=== PATIENT | male | born 1985 | race Two or more races ===

== ENCOUNTER → 2017-04-03 | Outpatient (REF) | payer MEDICARE, OTHER ==
[2017-04-03 16:57] LABS: MEAN CORPUSCULAR HEMOGLOBIN 29.7 pg (27.0-33.0); MEAN CORPUSCULAR HGB CONC 33.4 g/dl (32.0-36.5); RED CELL DISTRIBUTION WIDTH 13.1 % (11.5-14.5); WHITE BLOOD COUNT 7.6 K/mm3 (4.0-10.0)
[2017-04-03 18:02] LABS: ALBUMIN 4.3 GM/DL (3.2-5.2); ALBUMIN/GLOBULIN RATIO 1.26 (1.00-1.93); ALKALINE PHOSPHATASE 77 U/L (45-117); ALT/SGPT 30 U/L (12-78); ANION GAP 6 MEQ/L (8-16); AST/SGOT 14 U/L (15-37); BILIRUBIN,TOTAL 0.4 MG/DL (0.2-1.0); BLOOD UREA NITROGEN 16 MG/DL (7-18); CALCIUM LEVEL 9.5 MG/DL (8.5-10.1); CARBON DIOXIDE LEVEL 30 MEQ/L (21-32); CHLORIDE LEVEL 105 MEQ/L (98-107); CHOLESTEROL LEVEL 187 MG/DL (<200); CREATININE FOR GFR 1.08 MG/DL (0.70-1.30); GLOMERULAR FILTRATION RATE > 60.0 (>60); GLUCOSE, FASTING 78 MG/DL (70-105); POTASSIUM SERUM 4.3 MEQ/L (3.5-5.1); SODIUM LEVEL 141 MEQ/L (136-145); TOTAL PROTEIN 7.7 GM/DL (6.4-8.2); TRIGLYCERIDES LEVEL 118 MG/DL (<150)
== END ==
LOC: M SFHCLERA 14:25
PROVIDERS: ATTEND Family Medicine
DX: Z00.00 Encounter for general adult medical examination without abnormal findings (principal); F17.200 Nicotine dependence, unspecified, uncomplicated; Z91.89 Other specified personal risk factors, not elsewhere classified; Z13.220 Encounter for screening for lipoid disorders; Z72.3 Lack of physical exercise

== ENCOUNTER → 2018-01-14 | Outpatient (CLI) | payer OTHER | LOC: M WUC 09:45 | DX: S63.610A Unspecified sprain of right index finger, initial encounter (principal); W18.30XA Fall on same level, unspecified, initial encounter; Y92.009 Unspecified place in unspecified non-institutional (private) residence as the place of occurrence of the external cause ==

== ENCOUNTER 2019-05-28 12:04 | Inpatient (IN) | payer OTHER ==
[~2019-05-28] VITALS: Ht 172.7 cm; Wt 71.7 kg
[2019-05-28] MEDS ORDERED: KETOROLAC 30 MG/ML VIAL (J1885) IV ONE (14:15)
[2019-05-28] MEDS ORDERED: ONDANSETRON 4MG/2ML VIAL (J2405) IV ONE (14:15)
[2019-05-28] MEDS ORDERED: NS 1,000 ML IV ONE (14:15)
[2019-05-28 14:45] LABS: BASO % 0.3 % (0.0-1.0); EOS % 0.2 % (0.0-3.0); HEMATOCRIT 48.5 % (42.0-52.0); HEMOGLOBIN 15.8 g/dl (13.5-17.5); LYMPH # 2.2 10^3/uL (1.5-4.5); LYMPH % 18.6 % (24.0-44.0); MEAN CORPUSCULAR HEMOGLOBIN 29.1 pg (27.0-33.0); MEAN CORPUSCULAR HGB CONC 32.6 g/dl (32.0-36.5); MEAN CORPUSCULAR VOLUME 89.3 fl (80.0-96.0); MONO # 0.7 10^3/uL (0.0-0.8); MONO % 6.3 % (0.0-5.0); NEUTROPHILS # 8.6 10^3/uL (1.8-7.7); NEUTROPHILS % 74.3 % (36.0-66.0); PLATELET COUNT, AUTOMATED 300 10^3/uL (150-450); RED BLOOD COUNT 5.43 10^6/uL (4.30-6.10); WHITE BLOOD COUNT 11.6 10^3/uL (4.0-10.0)
[2019-05-28] MEDS: GASTROGRAFIN SOLUTION 30ML PO SCH ×2 (14:45→15:26)
[2019-05-28 15:15] LABS: ALBUMIN 4.6 GM/DL (3.2-5.2); ALT/SGPT 42 U/L (12-78); AMYLASE 100 U/L (25-115); BILIRUBIN,TOTAL 0.6 MG/DL (0.2-1.0); BLOOD UREA NITROGEN 15 MG/DL (7-18); CALCIUM LEVEL 9.6 MG/DL (8.5-10.1); CARBON DIOXIDE LEVEL 33 MEQ/L (21-32); CHLORIDE LEVEL 104 MEQ/L (98-107); CREATININE FOR GFR 1.13 MG/DL (0.70-1.30); GLOMERULAR FILTRATION RATE > 60.0 (>60); GLUCOSE, FASTING 91 MG/DL (70-100); POTASSIUM SERUM 3.6 MEQ/L (3.5-5.1); SODIUM LEVEL 141 MEQ/L (136-145)
[2019-05-28] MEDS ORDERED: ISOVUE-370 76% 100ML VIAL (Q9967) As Ordered ONE (16:14)
[2019-05-28] MEDS ORDERED: METOCLOPRAMIDE INJ 10MG/2ML VIAL (J2765) IV ONE (16:45)
--- NOTE | 2019-05-28 17:44 | REP ---
CT ABDOMEN AND PELVIS WITH ORAL AND IV CONTRAST: TECHNIQUE: Axial contrast enhanced images from the lung bases to the pubic symphysis using 100 mL Isovue 370 intravenous contrast material with multiplanar reformations. The visualized lung bases are clear. The liver demonstrates a peripherally enhancing nodule characteristic of hemangioma in the posterior segment of the right lobe best seen on image 28. Approximately 1.1 cm in diameter. Gallbladder is grossly unremarkable. Spleen, adrenals, pancreas and kidneys are unremarkable. There is no hydronephrosis bilaterally. There is no abdominal aortic aneurysm. There is no adenopathy. There is no free air or free fluid. No bowel wall thickening is seen. The appendix is normal. No pelvic mass is seen. Urinary bladder is unremarkable. IMPRESSION: No acute abnormalities are detected. No evidence of appendicitis or bowel inflammation. No free or free fluid. There is a nodule in the posterior segment of the right lobe of the liver demonstrating characteristics most consistent with hemangioma, approximately 1.1 cm in maximum diameter. Electronically Signed by Khurram Hart MD 05/28/2019 06:51 P
[2019-05-28] MEDS ORDERED: ONDANSETRON 4MG/2ML VIAL (J2405) IV PRN (18:00)
[2019-05-28] MEDS ORDERED: KETOROLAC 30 MG/ML VIAL (J1885) IV PRN (18:00)
--- NOTE | 2019-05-28 18:12 | HPEPDOC ---
[facility] Medical History & Physical Date of Admission May 28, 2019 Date of Service: May 28, 2019 History and Physical CHIEF COMPLAINT: nausea vomiting diarrhea HISTORY OF PRESENT ILLNESS: Pt is 34 y/o M with no PMHx does not have PCP, not on any medications presented to ED with worsening nausea and vomiting. Upon my encounter pt is awake and alert not in any acute distress. He states he has chronic diarrhea for one year now, lost 25 pounds. 5-6 BM per day semi loose stools without blood . Denies any fever or chills. Denies any abdominal pain. He reports mild lower abdomen pain associated with urge for BM. He went urgent care where he was referred for GI series that was not completed yet. ED Course: Lipase 1100, ABD CT unremarkable, labs mild leukocytosis. 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 REVIEW OF SYSTEMS: 10 point negative except in HPI HOME MEDICATIONS: Please see below. PHYSICAL EXAMINATION: VITAL SIGNS: please see below GENERAL APPEARANCE: awake alert oriented x3, no acute distress HEENT: neck supple ULISES EOMI no icterus mucosa moist CARDIOVASCULAR: S1 S2 RRR LUNGS: clear bilat no wheezing no rales ABDOMEN: soft NT ND MUSCULOSKELETAL: no deformity EXTREMITIES: no tenderness no cyanosis NEUROLOGICAL: grossly intact PSYCHIATRIC: mood affect appropriate LABORATORY DATA: See below. IMAGING: CT ABDOMEN AND PELVIS WITH ORAL AND IV CONTRAST: TECHNIQUE: Axial contrast enhanced images from the lung bases to the pubic symphysis using 100 mL Isovue 370 intravenous contrast material with multiplanar reformations. The visualized lung bases are clear. The liver demonstrates a peripherally enhancing nodule characteristic of hemangioma in the posterior segment of the right lobe best seen on image 28. Approximately 1.1 cm in diameter. Gallbladder is grossly unremarkable. Spleen, adrenals, pancreas and kidneys are unremarkable. There is no hydronephrosis bilaterally. There is no abdominal aortic aneurysm. There is no adenopathy. There is no free air or free fluid. No bowel wall thickening is seen. The appendix is normal. No pelvic mass is seen. Urinary bladder is unremarkable. IMPRESSION: No acute abnormalities are detected. No evidence of appendicitis or bowel inflammation. No free or free fluid. There is a nodule in the posterior segment of the right lobe of the liver demonstrating characteristics most consistent with hemangioma approximately 1.1 cm in maximum diameter. MICROBIOLOGY: Please see below. Vital Signs Date Time Temp Pulse Resp B/P (MAP) Pulse Ox O2 Delivery O2 Flow Rate FiO2 05/28/19 17:19 97.0 79 18 140/79 (99) 97 Room Air 05/28/19 13:03 05/28/19 12:05 97.7 99 18 130/77 (94) 98 Room Air Laboratory Tests 05/28/19 14:01: Blood Urea Nitrogen 15, Creatinine 1.13, Sodium Level 141, Potassium Level 3.6, Chloride Level 104, Carbon Dioxide Level 33H, Calcium Level 9.6, Aspartate Amino Transf (AST/SGOT) 28, Alanine Aminotransferase (ALT/SGPT) 42, Alkaline Phosphatase 78, Total Bilirubin 0.6, Total Protein 8.0, Albumin 4.6, Anion Gap 4L, Glomerular Filtration Rate > 60.0, Fasting Glucose 91, Albumin/Globulin Ratio 1.35, Amylase Level 100, Lipase 1109H 05/28/19 14:18: White Blood Count 11.6H, Red Blood Count 5.43, Hemoglobin 15.8, Hematocrit 48.5, Mean Corpuscular Volume 89.3, Mean Corpuscular Hemoglobin 29.1, Mean Corpuscular Hemoglobin Concent 32.6, Red Cell Distribution Width 13.3, Platelet Count 300, Neutrophils (%) (Auto) 74.3H, Lymphocytes (%) (Auto) 18.6L, Monocytes (%) (Auto) 6.3H, Eosinophils (%) (Auto) 0.2, Basophils (%) (Auto) 0.3, Neutrophils # (Auto) 8.6H, Lymphocytes # (Auto) 2.2, Monocytes # (Auto) 0.7, Eosinophils # (Auto) 0.0, Basophils # (Auto) 0.0, Immature Granulocyte % (Auto) 0.3, Nucleated Red Blood Cells % (auto) 0.0, Urine Color YELLOW, Urine Appearance HAZY, Urine pH 6.0, Urine Specific [place] 1.032, Urine Protein 1+H, Urine Glucose (UA) NEGATIVE, Urine Ketones TRACEH, Urine Blood NEGATIVE, Urine Nitrite NEGATIVE, Urine Bilirubin NEGATIVE, Urine Urobilinogen 2.0H, Urine Leukocyte Esterase N EGATIVE, Urine WBC (Auto) 2, Urine RBC (Auto) 11H, Urine Hyaline Casts (Auto) 0, Urine Bacteria (Auto) NEGATIVE, Urine Squamous Epithelial Cells 0, Urine Mucus (Auto) SMALL, Urine Sperm (Auto) A/P 1-Acute Pancreatitis questionable diagnosis only evidence elevated lipase 1100 pt major complaint is nausea vomiting and dysphagia requested lab to verify the number CTABD with PO/IV contrast unremarkable NPO Pain control Zofran PPI IVF NS 200 ml/hr Need to investigate other etiologies for elevated lipase 2-Liver hemangioma Incidental finding 3-Nicotine dependence 4-Chronic diarrhea with weight loss DVT prophylaxis Heparin SC Vital Signs Vital Signs Date Time Temp Pulse Resp B/P (MAP) Pulse Ox O2 Delivery O2 Flow Rate FiO2 05/28/19 17:19 97.0 79 18 140/79 (99) 97 Room Air Laboratory Data Labs 24H Laboratory Tests 2 05/28/19 14:01: Anion Gap 4L, Glomerular Filtration Rate > 60.0, Blood Urea Nitrogen 15, Creatinine 1.13, Sodium Level 141, Potassium Level 3.6, Chloride Level 104, Carbon Dioxide Level 33H, Calcium Level 9.6, Aspartate Amino Transf (AST/SGOT) 28, Alanine Aminotransferase (ALT/SGPT) 42, Alkaline Phosphatase 78, Total Bilirubin 0.6, Total Protein 8.0, Albumin 4.6, Albumin/Globulin Ratio 1.35, Amylase Level 100, Lipase 1109H 05/28/19 14:18: Immature Granulocyte % (Auto) 0.3, White Blood Count 11.6H, Red Blood Count 5.43, Hemoglobin 15.8, Hematocrit 48.5, Mean Corpuscular Volume 89.3, Mean Corpuscular Hemoglobin 29.1, Mean Corpuscular Hemoglobin Concent 32.6, Red Cell Distribution Width 13.3, Platelet Count 300, Neutrophils (%) (Auto) 74.3H, Lymphocytes (%) (Auto) 18.6L, Monocytes (%) (Auto) 6.3H, Eosinophils (%) (Auto) 0.2, Basophils (%) (Auto) 0.3, Neutrophils # (Auto) 8.6H, Lymphocytes # (Auto) 2.2, Monocytes # (Auto) 0.7, Eosinophils # (Auto) 0.0, Basophils # (Auto) 0.0, Nucleated Red Blood Cells % (auto) 0.0, Urine Color YELLOW, Urine Appearance HAZY, Urine pH 6.0, Urine Specific [place] 1.032, Urine Protein 1+H, Urine Glucose (UA) NEGATIVE, Urine Ketones TRACEH, Urine Blood NEGATIVE, Urine Nitrite NEGATIVE, Urine Bilirubin NEGATIVE, Urine Urobilinogen 2.0H, Urine Leukocyte Esterase NEGATIVE, Urine WBC (Auto) 2, Urine RBC (Auto) 11H, Urine Hyaline Casts (Auto) 0, Urine Bacteria (Auto) NEGATIVE, Urine Squamous Epithelial Cells 0, Ur ine Mucus (Auto) SMALL, Urine Sperm (Auto) CBC/BMP Laboratory Tests 05/28/19 14:01 Calcium Level 9.6, Aspartate Amino Transf (AST/SGOT) 28, Alanine Aminotransferase (ALT/SGPT) 42, Alkaline Phosphatase 78, Total Bilirubin 0.6, Total Protein 8.0, Albumin 4.6 05/28/19 14:18 Red Blood Count 5.43, Mean Corpuscular Volume 89.3, Mean Corpuscular Hemoglobin 29.1, Mean Corpuscular Hemoglobin Concent 32.6, Red Cell Distribution Width 13.3, Neutrophils (%) (Auto) 74.3 H, Lymphocytes (%) (Auto) 18.6 L, Monocytes (%) (Auto) 6.3 H, Eosinophils (%) (Auto) 0.2, Basophils (%) (Auto) 0.3, Neutrophils # (Auto) 8.6 H, Lymphocytes # (Auto) 2.2, Monocytes # (Auto) 0.7, Eosinophils # (Auto) 0.0, Basophils # (Auto) 0.0 Home Medications No Active Prescriptions or Reported Meds Allergies Coded Allergies: No Known Allergies (Unverified , 05/28/19) A-FIB/CHADSVASC A-FIB History Current/History of A-Fib/PAF?: No MAXI DYER MD May 28, 2019 18:12
[2019-05-28 18:30] LABS: LIPASE 1109 U/L (73-393)
[2019-05-28] MEDS: NS 1,000 ML IV SCH (19:19)
[2019-05-28] MEDS: PANTOPRAZOLE 40MG INJ (PROTONIX) (C9113) IV SCH (19:19)
[2019-05-28 21:45] VITALS: BP 130/74
[2019-05-29] MEDS: NS 1,000 ML IV SCH ×6 (00:15→23:30)
[2019-05-29 08:00] VITALS: BP 136/79
[2019-05-29] MEDS: PANTOPRAZOLE 40MG INJ (PROTONIX) (C9113) IV SCH (08:56)
[2019-05-29 10:15] LABS: HEMATOCRIT 43.1 % (42.0-52.0); HEMOGLOBIN 14.1 g/dl (13.5-17.5); MEAN CORPUSCULAR HEMOGLOBIN 29.4 pg (27.0-33.0); MEAN CORPUSCULAR HGB CONC 32.7 g/dl (32.0-36.5); MEAN CORPUSCULAR VOLUME 89.8 fl (80.0-96.0); PLATELET COUNT, AUTOMATED 236 10^3/uL (150-450); WHITE BLOOD COUNT 7.3 10^3/uL (4.0-10.0)
[2019-05-29 10:49] LABS: ALBUMIN 3.6 GM/DL (3.2-5.2); ALT/SGPT 31 U/L (12-78); AMYLASE 40 U/L (25-115); BILIRUBIN,TOTAL 0.9 MG/DL (0.2-1.0); BLOOD UREA NITROGEN 8 MG/DL (7-18); CALCIUM LEVEL 8.3 MG/DL (8.5-10.1); CARBON DIOXIDE LEVEL 29 MEQ/L (21-32); CHLORIDE LEVEL 110 MEQ/L (98-107); CREATININE FOR GFR 0.87 MG/DL (0.70-1.30); GLOMERULAR FILTRATION RATE > 60.0 (>60); GLUCOSE, FASTING 83 MG/DL (70-100); LIPASE 170 U/L (73-393); POTASSIUM SERUM 4.1 MEQ/L (3.5-5.1); SODIUM LEVEL 142 MEQ/L (136-145); TOTAL PROTEIN 6.6 GM/DL (6.4-8.2)
[2019-05-29 16:00] VITALS: BP 134/86
[2019-05-29] MEDS: CEPACOL LOZENGE PO PRN (16:08)
--- NOTE | 2019-05-29 23:07 | IPNPDOC ---
Text Note Date of Service The patient was seen on 05/29/19. NOTE Pt was seen and examined at bedside. Denies any abdominal pain. Denies any ep isode of N or V. PHYSICAL EXAMINATION: VITAL SIGNS: please see below GENERAL APPEARANCE: awake alert oriented x3, no acute distress HEENT: neck supple ULISES EOMI no icterus mucosa moist CARDIOVASCULAR: S1 S2 RRR LUNGS: clear bilat no wheezing no rales ABDOMEN: soft NT ND MUSCULOSKELETAL: no deformity EXTREMITIES: no tenderness no cyanosis NEUROLOGICAL: grossly intact PSYCHIATRIC: mood affect appropriate Vital Signs Date Time Temp Pulse Resp B/P (MAP) Pulse Ox O2 Delivery O2 Flow Rate FiO2 05/29/19 16:00 97.2 50 18 134/86 (102) 100 05/29/19 08:00 97.2 50 18 136/79 (98) 100 Intake & Output 05/29/19 06:00 Intake Total 0 ml Output Total 200 ml Balance -200 ml Laboratory Tests 05/29/19 09:55: White Blood Count 7.3, Red Blood Count 4.80, Hemoglobin 14.1, Hematocrit 43.1, Mean Corpuscular Volume 89.8, Mean Corpuscular Hemoglobin 29.4, Mean Corpuscular Hemoglobin Concent 32.7, Red Cell Distribution Width 13.2, Platelet Count 236, Nucleated Red Blood Cells % (auto) 0.0, Blood Urea Nitrogen 8, Creatinine 0.87, Sodium Level 142, Potassium Level 4.1, Chloride Level 110H, Carbon Dioxide Level 29, Calcium Level 8.3L, Aspartate Amino Transf (AST/SGOT) 20, Alanine Aminotransferase (ALT/SGPT) 31, Alkaline Phosphatase 62, Total Bilirubin 0.9, Total Protein 6.6, Albumin 3.6#, Anion Gap 3L, Glomerular Filtration Rate > 60.0, Fasting Glucose 83, Albumin/Globulin Ratio 1.20, Amylase Level 40, Lipase 170 Current Medications Medications (Trade) Dose Ordered Sig/Lucy Route PRN Reason Start Time Stop Time Status Last Admin Dose Admin Cetylpyridinium Chloride (Cepacol) 2 david Q4HP PRN PO COUGH 05/29/19 10:30 05/29/19 16:08 2 DAVID Ketorolac Tromethamine (ToRADol) 30 mg Q8HP PRN IV abdominal pain 05/28/19 18:00 7/21/19 17:59 05/29/19 08:59 30 MG Pantoprazole Sodium (Protonix) 40 mg DAILY IV 05/28/19 18:00 05/29/19 08:56 40 MG Sodium Chloride 1,000 ml @ 200 mls/hr Q5H IV 05/28/19 18:00 05/29/19 19:10 200 MLS/HR A/P 1-Acute Pancreatitis lipase rechecked ,initially 1100 repeat 1080 now has trended down 170 pt major complaint is nausea vomiting and dysphagia CTABD with PO/IV contrast unremarkable advance diet today monitor pain if pt tolerates Pain control Zofran PPI IVF NS 200 ml/hr Need to investigate other etiologies for elevated lipase 2-Liver hemangioma Incidental finding 3-Nicotine dependence 4-Chronic diarrhea with weight loss outpt GI referral DVT prophylaxis Heparin SC VS,Fishbone, I+O VS, Fishbone, I+O Laboratory Tests 05/29/19 09:55 Red Blood Count 4.80, Mean Corpuscular Volume 89.8, Mean Corpuscular Hemoglobin 29.4, Mean Corpuscular Hemoglobin Concent 32.7, Red Cell Distribution Width 13.2, Calcium Level 8.3 L, Aspartate Amino Transf (AST/SGOT) 20, Alanine Aminotransferase (ALT/SGPT) 31, Alkaline Phosphatase 62, Total Bilirubin 0.9, Total Protein 6.6, Albumin 3.6 # Vital Signs Date Time Temp Pulse Resp B/P (MAP) Pulse Ox O2 Delivery O2 Flow Rate FiO2 05/29/19 16:00 97.2 50 18 134/86 (102) 100 05/28/19 21:21 Room Air I&O- Last 24 Hours up to 6 AM 05/29/19 06:00 Intake Total 0 ml Output Total 200 ml Balance -200 ml MAXI DYER MD May 29, 2019 23:07
[2019-05-30] VITALS: BP 137/84
[2019-05-30 08:00] VITALS: BP 140/78
[2019-05-30] MEDS: CEPACOL LOZENGE PO PRN (08:57)
[2019-05-30] MEDS: PANTOPRAZOLE 40MG INJ (PROTONIX) (C9113) IV SCH (08:57)
--- NOTE | 2019-05-30 20:00 | DS.PDOC ---
Discharge Summary General Date of Admission May 28, 2019 at 17:56 Date of Discharge May 30, 2019 Discharge Summary PROCEDURES PERFORMED DURING STAY: [None]. ADMITTING DIAGNOSES: 1-Acute Pancreatitis 2-Liver hemangioma 3-Nicotine dependence 4-Chronic diarrhea with weight loss and dehydration DISCHARGE DIAGNOSES: same as above COMPLICATIONS/CHIEF COMPLAINT: Acute Pancreatitis. HISTORY OF PRESENT ILLNESS: Pt is 34 y/o M with no PMHx does not have PCP, not on any medications presented to ED with worsening nausea and vomiting. Upon my encounter pt is awake and alert not in any acute distress. He states he has chronic diarrhea for one year now, lost 25 pounds. 5-6 BM per day semi loose stools without blood . Denies any fever or chills. Denies any abdominal pain. He reports mild lower abdomen pain associated with urge for BM. He went urgent care where he was referred for GI series that was not completed yet. ED Course: Lipase 1100, called lab to review analysis again, repeat was 1024, ABD CT unremarkable, labs mild leukocytosis. HOSPITAL COURSE: Pt was admitted to [facility] with above presentation. He was made NPO for diagnosis of acute pancreatitis with IVF NS resuscitation. he received antiemetics, pain control and IV proton pump inhibitors. Lipase trended down to 170, no e lectrolyte abnormality was noted, pt hemodynamically remained stable, next day nausea, vomiting resolved, denied any abdominal pain. Pt is discharged home with PCP f/u. Of note, CT abdomen revealed incidentally that pt has hepatic hemangioma. DISCHARGE MEDICATIONS: Please see below. ALLERGIES: Please see below. PHYSICAL EXAMINATION ON DISCHARGE: VITAL SIGNS: please see below GENERAL APPEARANCE: awake alert oriented x3, no acute distress HEENT: neck supple ULISES EOMI no icterus mucosa moist CARDIOVASCULAR: S1 S2 RRR LUNGS: clear bilat no wheezing no rales ABDOMEN: soft NT ND MUSCULOSKELETAL: no deformity EXTREMITIES: no tenderness no cyanosis NEUROLOGICAL: grossly intact PSYCHIATRIC: mood affect appropriate LABORATORY DATA: Please see below. IMAGING: CT ABDOMEN AND PELVIS WITH ORAL AND IV CONTRAST: TECHNIQUE: Axial contrast enhanced images from the lung bases to the pubic symphysis using 100 mL Isovue 370 intravenous contrast material with multiplanar reformations. The visualized lung bases are clear. The liver demonstrates a peripherally enhancing nodule characteristic of hemangioma in the posterior segment of the right lobe best seen on image 28. Approximately 1.1 cm in diameter. Gallbladder is grossly unremarkable. Spleen, adrenals, pancreas and kidneys are unremarkable. There is no hydronephrosis bilaterally. There is no abdominal aortic aneurysm. There is no adenopathy. There is no free air or free fluid. No bowel wall thickening is seen. The appendix is normal. No pelvic mass is seen. Urinary bladder is unremarkable. IMPRESSION: No acute abnormalities are detected. No evidence of appendicitis or bowel inflammation. No free or free fluid. There is a nodule in the posterior segment of the right lobe of the liver demonstrating characteristics most consistent with hemangioma approximately 1.1 cm in maximum diameter. PROGNOSIS: fair ACTIVITY: [As tolerated]. DIET: high fiber DISCHARGE PLAN: DISPOSITION: Home, Self-Care. ITEMS TO FOLLOWUP ON ON OUTPATIENT: 1. PCP in one week DISCHARGE CONDITION: [Stable]. TIME SPENT ON DISCHARGE: 35 minutes. Vital Signs/I&Os Vital Signs Date Time Temp Pulse Resp B/P (MAP) Pulse Ox O2 Delivery O2 Flow Rate FiO2 05/30/19 08:00 97.4 64 17 140/78 (98) 100 05/28/19 21:21 Room Air I&O- Last 24 Hours up to 6 AM 05/30/19 06:00 Intake Total 4240 ml Balance 4240 ml Discharge Medications No Active Prescriptions or Reported Meds Allergies Coded Allergies: No Known Allergies (Unverified , 05/28/19) MAXI DYER MD May 30, 2019 20:00
== END 2019-05-30 10:35 | disposition home or self-care (01) | DRG 440 ==
LOC: M ED 12:04 → M ED INP 17:56 → M PED 21:45
PROVIDERS: ADMIT Hospitalist; ATTEND Hospitalist
DX: K85.90 Acute pancreatitis without necrosis or infection, unspecified (principal); K52.9 Noninfective gastroenteritis and colitis, unspecified; F17.200 Nicotine dependence, unspecified, uncomplicated; R63.4 Abnormal weight loss; D18.03 Hemangioma of intra-abdominal structures

== ENCOUNTER → 2019-06-12 | Outpatient (CLI) | payer OTHER ==
[2019-06-15 14:07] LABS: F002-IgE Milk < 0.10 kU/L (Class 0); F004-IgE Wheat < 0.10 kU/L (Class 0); F013-IgE Peanut < 0.10 kU/L (Class 0); F014-IgE Soybean < 0.10 kU/L (Class 0); F026-IgE Pork < 0.10 kU/L (Class 0); F027-IgE Beef < 0.10 kU/L (Class 0); F245-IgE Egg, Whole < 0.10 kU/L (Class 0); FX02-IgE Food Mix (Sea Foods) Negative (.); TISSUE TRANSGLUTAMINASE IgA <2 U/mL (0-3)
== END ==
LOC: M LAB 13:13
PROVIDERS: ATTEND Family Medicine
DX: R10.32 Left lower quadrant pain (principal)

== ENCOUNTER 2019-08-09 10:55 | Day surgery (SDC) | payer OTHER ==
[~2019-08-09] VITALS: Ht 172.7 cm; Wt 66.7 kg
[~2019-08-09 10:55] MED LIST: DICY10CA13 PO; ESOM20CA25 PO; LIDOCAINE 2% INJ 100 MG/5 ML SDV (FOR ANES.) As Ordered ONE; NS 1,000 ML IV ONE; ONDA4TAB5 PO; PROPOFOL 500 MG/50 ML VIAL As Ordered ONE; fentaNYL 100 MCG/2 ML INJECTION (J3010) As Ordered ONE
--- NOTE | 2019-08-09 12:36 | ROOR ---
Patient Name: Gaurav Julio Procedure Date: 08/09/2019 11:43 AM Date of : 1985 Age: 34 Room: [facility] Gender: Male Note Status: Finalized Procedure: Upper GI endoscopy Indications: Dyspepsia, Persistent vomiting of unknown cause Providers: Cole Ram MD Referring MD: Alirio CAIN MD Requesting Provider: Medicines: Monitored Anesthesia Care Complications: No immediate complications. Procedure: Pre-Anesthesia Assessment: - Prior to the procedure, a History and Physical was performed, and patient medications and allergies were reviewed. The patient is competent. The risks and benefits of the procedure and the sedation options and risks were discussed with the patient. All questions were answered and informed consent was obtained. Patient identification and proposed procedure were verified by the physician, the nurse and the anesthesiologist in the procedure room. Mental Status Examination: alert and oriented. Airway Examination: normal oropharyngeal airway and neck mobility. Respiratory Examination: clear to auscultation. CV Examination: normal. Prophylactic Antibiotics: The patient does not require prophylactic antibiotics. Prior Anticoagulants: The patient has taken no previous anticoagulant or antiplatelet agents. ASA Grade Assessment: II - A patient with mild systemic disease. After reviewing the risks and benefits, the patient was deemed in satisfactory condition to undergo the procedure. The anesthesia plan was to use monitored anesthesia care (MAC). Immediately prior to administration of medications, the patient was re-assessed for adequacy to receive sedatives. The heart rate, respiratory rate, oxygen saturations, blood pressure, adequacy of pulmonary ventilation, and response to care were monitored throughout the procedure. The physical status of the patient was re-assessed after the procedure. The Endoscope was introduced through the mouth, and advanced to the second part of duodenum. The upper GI endoscopy was accomplished without difficulty. The patient tolerated the procedure well. Findings: LA Grade A (one or more mucosal breaks less than 5 mm, not extending between tops of 2 mucosal folds) esophagitis with no bleeding was found in the distal esophagus. Biopsies were taken with a cold forceps for histology. Verification of patient identification for the specimen was done by the physician and nurse using the patient's name, date and medical record number. Estimated blood loss was minimal. The Z-line was irregular and was found 42 cm from the incisors. Scattered moderate inflammation characterized by erosions, erythema and granularity was found in the gastric body and in the gastric antrum. Biopsies were taken with a cold forceps for Helicobacter pylori testing. The duodenal bulb and second portion of the duodenum were normal. Biopsies for histology were taken with a cold forceps for evaluation of celiac disease. Impression: - LA Grade A reflux esophagitis. Rule out Charles's esophagus. Biopsied. - Z-line irregular, 42 cm from the incisors. - Gastritis. Biopsied. - Normal duodenal bulb and second portion of the duodenum. Biopsied. Recommendation: - Patient has a contact number available for emergencies. The signs and symptoms of potential delayed complications were discussed with the patient. Return to normal activities tomorrow. Written discharge instructions were provided to the patient. - Resume previous diet. - Continue present medications. - Follow an antireflux regimen. - Telephone GI clinic for pathology results in 2 weeks. - Return to primary care physician. Cole Ram MD Cole Ram MD 08/09/2019 12:36:07 PM Electronically signed by Cole Ram MD Number of Addenda: 0 Note Initiated On: 08/09/2019 11:43 AM Estimated Blood Loss: Estimated blood loss was minimal.
--- NOTE | 2019-08-09 12:39 | ROOR ---
Patient Name: Gaurav Julio Procedure Date: 08/09/2019 11:44 AM Date of : 1985 Age: 34 Room: [facility] Gender: Male Note Status: Finalized Procedure: Colonoscopy Indications: Chronic diarrhea Providers: Cole Ram MD Referring MD: Alirio CAIN MD Requesting Provider: Medicines: Monitored Anesthesia Care Complications: No immediate complications. Procedure: Pre-Anesthesia Assessment: - Prior to the procedure, a History and Physical was performed, and patient medications and allergies were reviewed. The patient is competent. The risks and benefits of the procedure and the sedation options and risks were discussed with the patient. All questions were answered and informed consent was obtained. Patient identification and proposed procedure were verified by the physician, the nurse and the anesthesiologist in the procedure room. Mental Status Examination: alert and oriented. Respiratory Examination: clear to auscultation. CV Examination: normal. Prophylactic Antibiotics: The patient does not require prophylactic antibiotics. Prior Anticoagulants: The patient has taken no previous anticoagulant or antiplatelet agents. ASA Grade Assessment: II - A patient with mild systemic disease. After reviewing the risks and benefits, the patient was deemed in satisfactory condition to undergo the procedure. The anesthesia plan was to use monitored anesthesia care (MAC). Immediately prior to administration of medications, the patient was re-assessed for adequacy to receive sedatives. The heart rate, respiratory rate, oxygen saturations, blood pressure, adequacy of pulmonary ventilation, and response to care were monitored throughout the procedure. The physical status of the patient was re-assessed after the procedure. The Colonoscope was introduced through the anus and advanced to the terminal ileum, with identification of the appendiceal orifice and IC valve. The colonoscopy was performed without difficulty. The patient tolerated the procedure well. The quality of the bowel preparation was good. The terminal ileum, ileocecal valve, appendiceal orifice, and rectum were photographed. Scope insertion time was 3 minutes. Scope withdrawal time was 9 minutes. The total duration of the procedure was 12 minutes. Findings: The perianal and digital rectal examinations were normal. The terminal ileum appeared normal. A 4 mm polyp was found in the cecum. The polyp was sessile. The polyp was removed with a cold biopsy forceps. Resection and retrieval were complete. Verification of patient identification for the specimen was done by the physician and nurse using the patient's name, date and medical record number. Estimated blood loss was minimal. Multiple small-mouthed diverticula were found from sigmoid to descending colon. There was no evidence of diverticular bleeding. Non-bleeding external and internal hemorrhoids were found during retroflexion. The hemorrhoids were small. Normal mucosa was found in the entire colon. Biopsies for histology were taken with a cold forceps from the right colon, left colon and rectosigmoid colon for evaluation of microscopic colitis. Impression: - The examined portion of the ileum was normal. - One 4 mm polyp in the cecum, removed with a cold biopsy forceps. Resected and retrieved. - Mild diverticulosis from sigmoid to descending colon. There was no evidence of diverticular bleeding. - Non-bleeding external and internal hemorrhoids. - Normal mucosa in the entire examined colon. Biopsied. Recommendation: - Patient has a contact number available for emergencies. The signs and symptoms of potential delayed complications were discussed with the patient. Return to normal activities tomorrow. Written discharge instructions were provided to the patient. - High fiber diet. - Continue present medications. - Await pathology results. - Repeat colonoscopy in 5-10 years for surveillance based on pathology results. - Telephone GI clinic for pathology results in 2 weeks. - Return to primary care physician. Cole Ram MD Cole Ram MD 08/09/2019 12:38:39 PM Electronically signed by Cole Ram MD Number of Addenda: 0 Note Initiated On: 08/09/2019 11:44 AM Estimated Blood Loss: Estimated blood loss was minimal.
[2019-08-09 13:00] VITALS: BP 130/81
== END 2019-08-09 13:10 | disposition home or self-care (01) ==
LOC: M OPP 10:55
PROVIDERS: ATTEND Internal Medicine Gastroenterology
DX: K64.8 Other hemorrhoids (principal); D12.0 Benign neoplasm of cecum; K52.9 Noninfective gastroenteritis and colitis, unspecified; K57.30 Diverticulosis of large intestine without perforation or abscess without bleeding; K21.0 Gastro-esophageal reflux disease with esophagitis; K22.8 Other specified diseases of esophagus; K29.70 Gastritis, unspecified, without bleeding; R10.13 Epigastric pain; R11.10 Vomiting, unspecified; E73.9 Lactose intolerance, unspecified; F17.210 Nicotine dependence, cigarettes, uncomplicated; Z79.899 Other long term (current) drug therapy
CPT/HCPCS: 43239; 45380; 88305; J3010

== ENCOUNTER → 2019-08-23 | Outpatient (REF) | payer OTHER ==
[~2019-08-23] MED LIST changes: -LIDOCAINE 2% INJ 100 MG/5 ML SDV (FOR ANES.) As Ordered ONE; -NS 1,000 ML IV ONE; -PROPOFOL 500 MG/50 ML VIAL As Ordered ONE; -fentaNYL 100 MCG/2 ML INJECTION (J3010) As Ordered ONE
[2019-08-23 14:25] LABS: BASO % 0.6 % (0.0-1.0); EOS # 0.2 10^3/uL (0.0-0.5); EOS % 2.6 % (0.0-3.0); HEMATOCRIT 44.8 % (42.0-52.0); HEMOGLOBIN 14.3 g/dl (13.5-17.5); LYMPH # 1.9 10^3/uL (1.5-5.0); LYMPH % 27.8 % (24.0-44.0); MEAN CORPUSCULAR HEMOGLOBIN 29.3 pg (27.0-33.0); MEAN CORPUSCULAR HGB CONC 31.9 g/dl (32.0-36.5); MEAN CORPUSCULAR VOLUME 91.8 fl (80.0-96.0); MONO # 0.5 10^3/uL (0.0-0.8); MONO % 7.3 % (0.0-5.0); NEUTROPHILS # 4.3 10^3/uL (1.5-8.5); NEUTROPHILS % 61.4 % (36.0-66.0); PLATELET COUNT, AUTOMATED 284 10^3/uL (150-450); RED BLOOD COUNT 4.88 10^6/uL (4.30-6.10)
[2019-08-23 14:32] LABS: ALBUMIN 4.5 GM/DL (3.2-5.2); ALT/SGPT 23 U/L (12-78); BILIRUBIN,TOTAL 0.5 MG/DL (0.2-1.0); BLOOD UREA NITROGEN 8 MG/DL (7-18); CALCIUM LEVEL 9.9 MG/DL (8.5-10.1); CARBON DIOXIDE LEVEL 33 MEQ/L (21-32); CHLORIDE LEVEL 105 MEQ/L (98-107); CHOLESTEROL LEVEL 178 MG/DL (<200); CHOLESTEROL RISK RATIO 3.787 (<5); CREATININE FOR GFR 1.07 MG/DL (0.70-1.30); GLOMERULAR FILTRATION RATE > 60.0 (>60); GLUCOSE, FASTING 83 MG/DL (70-100); HDL CHOLESTEROL 47 MG/DL (>40); LDL CHOLESTEROL 114 MG/DL (<100); NON-HDL-C 131 MG/DL; POTASSIUM SERUM 4.8 MEQ/L (3.5-5.1); SODIUM LEVEL 143 MEQ/L (136-145); TOTAL PROTEIN 7.7 GM/DL (6.4-8.2); TRIGLYCERIDES LEVEL 85 MG/DL (<150)
[2019-08-23 14:43] LABS: HEMOGLOBIN A1c 5.7 %
== END ==
LOC: M SFHCSACK 11:12
PROVIDERS: ATTEND Physician Assistant
DX: Z13.220 Encounter for screening for lipoid disorders (principal); K21.9 Gastro-esophageal reflux disease without esophagitis; Z83.3 Family history of diabetes mellitus; Z13.21 Encounter for screening for nutritional disorder

== ENCOUNTER → 2019-12-30 | Outpatient (CLI) | payer OTHER ==
[~2019-12-30] MED LIST changes: +ONDA-83 PO; -ONDA4TAB5 PO
--- NOTE | 2019-12-30 18:01 | REP ---
Clinical: Left-sided chest wall pain Technique: Frontal view of the chest with four views of the left hemithorax. Findings: Frontal view of the chest demonstrates no acute cardiopulmonary process. Multiple views of the left hemithorax demonstrates no obvious acute rib fracture or pathology. Impression: Normal left rib series Electronically Signed by Charlie Ansari MD 12/30/2019 05:52 P
== END ==
LOC: M LRY 17:17
PROVIDERS: ATTEND Nurse Practitioner Family
DX: R07.89 Other chest pain (principal)

== ENCOUNTER → 2021-05-07 | Outpatient (REF) | payer OTHER ==
[2021-05-07 19:33] LABS: BASO % 0.3 % (0.0-1.0); EOS % 0.1 % (0.0-3.0); HEMATOCRIT 46.4 % (42.0-52.0); HEMOGLOBIN 14.9 g/dl (13.5-17.5); LYMPH # 1.7 10^3/uL (1.5-5.0); LYMPH % 13.9 % (24.0-44.0); MEAN CORPUSCULAR HGB CONC 32.1 g/dl (32.0-36.5); MEAN CORPUSCULAR VOLUME 90.4 fl (80.0-96.0); MONO # 0.7 10^3/uL (0.0-0.8); MONO % 6.3 % (2.0-8.0); NEUTROPHILS # 9.4 10^3/uL (1.5-8.5); NEUTROPHILS % 79.1 % (36.0-66.0); PLATELET COUNT, AUTOMATED 313 10^3/uL (150-450); RED BLOOD COUNT 5.13 10^6/uL (4.30-6.10); WHITE BLOOD COUNT 11.8 10^3/uL (4.0-10.0)
[2021-05-07 20:01] LABS: ALBUMIN 4.8 GM/DL (3.2-5.2); ALT/SGPT 26 U/L (12-78); BILIRUBIN,TOTAL 0.7 MG/DL (0.2-1.0); BLOOD UREA NITROGEN 13 MG/DL (7-18); CALCIUM LEVEL 9.9 MG/DL (8.5-10.1); CARBON DIOXIDE LEVEL 31 MEQ/L (21-32); CHLORIDE LEVEL 105 MEQ/L (98-107); CHOLESTEROL LEVEL 207 MG/DL (<200); CHOLESTEROL RISK RATIO 3.905 (<5); CREATININE FOR GFR 1.22 MG/DL (0.70-1.30); GLOMERULAR FILTRATION RATE > 60.0 (>60); GLUCOSE, FASTING 85 MG/DL (70-100); HDL CHOLESTEROL 53 MG/DL (>40); LDL CHOLESTEROL 137 MG/DL (<100); NON-HDL-C 154 MG/DL; POTASSIUM SERUM 4.4 MEQ/L (3.5-5.1); RHEUMATOID FACTOR QUANT < 10.0 IU/ML (<15.0); SODIUM LEVEL 139 MEQ/L (136-145); TOTAL PROTEIN 7.7 GM/DL (6.4-8.2); TRIGLYCERIDES LEVEL 87 MG/DL (<150)
[2021-05-07 20:02] LABS: TOTAL 25(OH) VITAMIN D 22.5 NG/ML (30.0-100.0)
[2021-05-07 20:03] LABS: ERYTHROCYTE SEDIMENTATION RATE 3 mm/hr (0-15)
== END ==
LOC: M SFHCADAM 15:42
PROVIDERS: ATTEND Physician Assistant Medical
DX: K21.9 Gastro-esophageal reflux disease without esophagitis (principal); E78.00 Pure hypercholesterolemia, unspecified; E55.9 Vitamin D deficiency, unspecified; M25.50 Pain in unspecified joint

== ENCOUNTER → 2021-06-10 | Outpatient (CLI) | payer OTHER ==
--- NOTE | 2021-06-10 10:29 | REP ---
INDICATION: LEFT ELBOW PAIN, LEFT TENNIS ELBOW. COMPARISON: None. TECHNIQUE: Four views of the left elbow are provided. FINDINGS: Four views of the left elbow demonstrate normal bones, joints, and soft tissues. No fracture or subluxation is seen. No opaque foreign body noted. IMPRESSION: Negative left elbow series. <Electronically signed by Werner Pedraza > 06/10/21 1029
== END ==
LOC: M ADAMS 09:16
PROVIDERS: ATTEND Physician Assistant Medical
DX: M25.522 Pain in left elbow (principal); M77.12 Lateral epicondylitis, left elbow

== ENCOUNTER → 2023-06-26 | Outpatient (CLI) | payer OTHER ==
[~2023-06-26] MED LIST changes: +DICY-61 PO; -DICY10CA13 PO
== END ==
LOC: M WUC 15:20
PROVIDERS: ATTEND Student in an Organized Health Care Education/Training Program
DX: M79.644 Pain in right finger(s) (principal)

== ENCOUNTER 2024-07-12 15:12 | Emergency (ER) | payer OTHER ==
[~2024-07-12] VITALS: Ht 172.7 cm; Wt 68.9 kg
[2024-07-12] MEDS: LIDOCAINE 1% MDV 20ML VIAL SC ONE (17:10)
[2024-07-12] MEDS: BOOSTRIX VACCINE (TETANUS/DIPHTH/ACEL. PERTUSSIS) 0.5ML SYR IM ONE (17:18)
[2024-07-12] MEDS ORDERED: CEPH500C PO (18:09)
[2024-07-12 18:26] VITALS: BP 128/84; TEMP 98; O2SAT 100
== END 2024-07-12 18:28 | disposition home or self-care (01) ==
LOC: M ED 15:12
DX: S71.111A Laceration without foreign body, right thigh, initial encounter (principal); X58.XXXA Exposure to other specified factors, initial encounter; Y92.009 Unspecified place in unspecified non-institutional (private) residence as the place of occurrence of the external cause; Y93.9 Activity, unspecified; Y99.9 Unspecified external cause status; F17.200 Nicotine dependence, unspecified, uncomplicated; Z79.899 Other long term (current) drug therapy